=== PATIENT | female | born 1995 | race Two or more races ===

== ENCOUNTER 2024-02-23 13:19 | Emergency (ER) | payer OTHER ==
[~2024-02-23] VITALS: Ht 165.1 cm; Wt 61.4 kg
[2024-02-23 13:21] VITALS: BP 140/87; PULSE 85; TEMP 98; O2SAT 100
[2024-02-23] MEDS: naproxen 500mg tablet PO ONE (13:41)
[2024-02-23 13:43] VITALS: RESP 16
== END 2024-02-23 13:44 | disposition home or self-care (01) ==
LOC: ER 13:19
DX: T14.8XXA Other injury of unspecified body region, initial encounter (principal); M25.511 Pain in right shoulder; M25.531 Pain in right wrist; M25.561 Pain in right knee; M25.562 Pain in left knee; M25.571 Pain in right ankle and joints of right foot; M25.572 Pain in left ankle and joints of left foot; W19.XXXA Unspecified fall, initial encounter; Y93.89 Activity, other specified; Y92.89 Other specified places as the place of occurrence of the external cause; Y99.8 Other external cause status
CPT/HCPCS: 99284